=== PATIENT | female | born 1945 | race Asian ===

== ENCOUNTER 2019-01-10 11:14 | Emergency (ER) | payer OTHER ==
[~2019-01-10] VITALS: Ht 160 cm; Wt 70.3 kg
[2019-01-10 11:16] VITALS: Ht 160 cm; Wt 70.3 kg
[2019-01-10 12:26] LABS: microscopic required? YES; urine erythrocyte 2+ (NEGATIVE)
[2019-01-10 12:28] LABS: BASOPHIL % 0.4 % (0-2); PLATELET COUNT 258 x10^3mcL (130-400); RED CELL DISTRIBUTION WIDTH 13.1 % (11.5-14.5)
[2019-01-10 12:37] LABS: CALCIUM 8.7 mg/dL (8.5-10.1); CHLORIDE SERUM 105 mmol/L (98-107); CREATININE SERUM 0.8 mg/dL (0.6-1.0); GLUCOSE SERUM 95 mg/dL (74-106); POTASSIUM SERUM 4.1 mmol/L (3.5-5.1); SODIUM SERUM 140 mmol/L (136-145)
[2019-01-10 12:49] LABS: ALBUMIN 3.8 g/dL (3.4-5.0); ALKALINE PHOSPHATASE 86 U/L (46-116); ALT/SGPT 26 U/L (14-59); AST/SGOT 13 U/L (15-37); BILIRUBIN TOTAL 0.63 mg/dL (0.20-1.00); TOTAL PROTEIN, SERUM 7.6 g/dL (6.4-8.2)
[2019-01-10 12:54] LABS: CK-MB 0.9 ng/mL (0-3.6)
[2019-01-10 12:58] LABS: FREE T4 0.99 ng/dL (0.76-1.46); FREE THYROXINE INDEX 2.2 ug/dL (1.4-4.5); T3 TOTAL 0.97 ng/mL; T4(THYROXINE) 6.7 ug/dL (4.7-13.3)
[2019-01-10 13:02] LABS: C REACTIVE PROTEIN < 0.2 mg/dL (<=0.9)
[2019-01-10 13:45] LABS: ERYTHROCYTE SED RATE 23 mm/hr (0-30)
[2019-01-10 14:10] VITALS: BP 123/73
== END 2019-01-10 14:10 | disposition home or self-care (01) ==
LOC: ED 11:14
PROVIDERS: Specialist
DX: N39.0 Urinary tract infection, site not specified (principal); R51 Headache; I10 Essential (primary) hypertension; E78.00 Pure hypercholesterolemia, unspecified; E03.9 Hypothyroidism, unspecified
CPT/HCPCS: 84439; J0696; J2405; J7030; J7060; Q0092

== ENCOUNTER 2019-04-23 20:18 | Emergency (ER) | payer OTHER ==
[~2019-04-23] VITALS: Ht 154.9 cm; Wt 69.9 kg
[2019-04-23 20:58] VITALS: Ht 154.9 cm; Wt 69.9 kg
[2019-04-23 22:58] VITALS: BP 124/82
== END 2019-04-23 22:58 | disposition home or self-care (01) ==
LOC: ED 20:18
DX: S71.151A Open bite, right thigh, initial encounter (principal); I10 Essential (primary) hypertension; E78.00 Pure hypercholesterolemia, unspecified; W54.0XXA Bitten by dog, initial encounter; Y93.89 Activity, other specified; Y92.89 Other specified places as the place of occurrence of the external cause; Y99.8 Other external cause status
CPT/HCPCS: 90715

== ENCOUNTER 2019-04-26 14:57 | Emergency (ER) | payer OTHER ==
[2019-04-26 16:41] VITALS: BP 146/80
== END 2019-04-26 16:41 | disposition home or self-care (01) ==
LOC: ED 14:57
DX: S70.11XD Contusion of right thigh, subsequent encounter (principal); E03.9 Hypothyroidism, unspecified; K21.9 Gastro-esophageal reflux disease without esophagitis; E78.00 Pure hypercholesterolemia, unspecified; I10 Essential (primary) hypertension; W54.0XXD Bitten by dog, subsequent encounter

== ENCOUNTER 2019-08-28 17:47 | Emergency (ER) | payer OTHER ==
[~2019-08-28] VITALS: Ht 152.4 cm; Wt 74.8 kg
[2019-08-28 18:00] VITALS: Ht 152.4 cm; Wt 74.8 kg
[2019-08-28 19:00] VITALS: BP 135/76
== END 2019-08-28 19:00 | disposition home or self-care (01) ==
LOC: ED 17:47
DX: R42 Dizziness and giddiness (principal); I10 Essential (primary) hypertension; E78.00 Pure hypercholesterolemia, unspecified